=== PATIENT | female | born 1995 | race African-American/Black ===

== ENCOUNTER 2018-01-16 10:43 | Emergency (ER) | payer MEDICAID ==
[~2018-01-16] VITALS: Ht 165.1 cm; Wt 95.0 kg
[~2018-01-16 10:43] MED LIST: NOCURR
[2018-01-16] MEDS ORDERED: PENICILLIN G BENZATHINE LA 1,200,000 UNITS/2 ML SYRINGE IM ONE (12:15)
[2018-01-16] MEDS ORDERED: KETOROLAC TROMETHAMINE 60 MG/2 ML VIAL IM ONE (12:15)
[2018-01-16] MEDS ORDERED: DEXAMETHASONE SOD PHOS 4 MG/ML 5 ML VIAL IVP ONE (12:15)
[2018-01-16 12:55] VITALS: BP 134/79
== END 2018-01-16 13:37 | disposition home or self-care (01) ==
LOC: EMS 10:44
DX: J02.0 Streptococcal pharyngitis (principal); H66.91 Otitis media, unspecified, right ear; J45.909 Unspecified asthma, uncomplicated; F12.90 Cannabis use, unspecified, uncomplicated
CPT/HCPCS: 96372; 96374; 99284; J0561; J1100; J1885

== ENCOUNTER 2024-03-22 20:55 | Emergency (ER) | payer MEDICAID, OTHER ==
[~2024-03-22] VITALS: Ht 167.6 cm; Wt 110.0 kg
[2024-03-22 21:06] VITALS: BP 128/68; PULSE 92; RESP 16; TEMP 98.1; O2SAT 100
== END 2024-03-22 22:44 | disposition left against medical advice (07) ==
LOC: EMS 20:55
DX: R07.89 Other chest pain (principal); M25.562 Pain in left knee; Z53.21 Procedure and treatment not carried out due to patient leaving prior to being seen by health care provider
CPT/HCPCS: 71045